=== PATIENT | male | born 1975 | race Caucasian/White ===

== ENCOUNTER 2017-08-26 06:56 | Emergency (ER) | payer MEDICAID, SELFPAY ==
[2017-08-26 07:11] VITALS: BP 130/90; PULSE 81; RESP 16; TEMP 37.1; O2SAT 98; BMI 25.1
--- NOTE | 2017-08-26 07:16 | XR_ITS ---
XR hand RT 2V HISTORY: ITS.REASON: pain with swelling ORDERING PHYSICIAN: Alf Greenberg MD PATIENT AGE: 42 years COMPARISON: None FINDINGS: No fracture or dislocation. No lytic or blastic change. There is normal mineralization.. The joint spaces are well-preserved. No significant degenerative/arthritic changes. No erosive changes evident.. 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
--- NOTE | 2017-08-26 07:23 | HMH.EDGENADL ---
ED Disposition Clinical Impression: Hand arthritis Disposition: Home, Self-Care Condition on Discharge: Good Instructions: DI for Arthralgia Additional Instructions: see pcp and take meds as directed Prescriptions: predniSONE [Prednisone 20mg Tab] 20 mg PO DAILY #10 tab - Critical Care Critical Care Time: No Attestation: On 08/26/17, the high probability of a clinically significant, sudden or life threatening deterioration of the following system(s) required my full and direct attention, intervention and personal management. The time I documented below is in addition to time spent performing reported procedures but includes the following listed in this critical care notation. Medical Decision Making - Medical Records Medical records reviewed: Yes: I reviewed the patient's medical records. Vital Signs: 08/26/17 07:11 Temperature 98.7 F Temperature Source Oral Pulse Rate [Left Brachial] 81 Respiratory Rate 16 Blood Pressure [Right Arm] 130/90 Blood Pressure Mean [Right Arm] 103 Blood Pressure Source [Right Arm] Automatic Cuff Blood Pressure Position [Right Arm] Sitting 02 Sat by Pulse Oximetry 98 Oxygen Delivery Method Room Air Orders (Tests/Meds): ORDERS Category Date Time Status Hand XR right 2 views [XR hand RT 2V] Stat Exams 08/26/17 07:16 Ordered - Radiology Data #1 Image(s): Hand Image Reviewed: Yes I reviewed the patient's radiology image Preliminary Findings: No Fracture Seen - Iván Inquiry Pt receiving controlled substance: No General Adult HPI - General Chief complaint: PAIN Stated complaint: Swollen Rt Hand Time Seen by Provider: 08/26/17 07:23 Mode of Arrival: Ambulatory Source of Information: Patient, Medical Record Limitations: No Limitations Description of Symptoms (Recalled from ER Triage Doc. by RN): pt c/o pain in the right hand with swelling - History of Present Illness HPI narrative: atraumatic rt hand swelling over the last 2 days - no hx of gout Onset (ago): day(s) Location: upper extremity Radiation: non-radiation Severity: moderate Relieving factors: none Exacerbating factors: none Associated symptoms: denies other symptoms - Related Data Previous Rx's Medication Instructions Recorded predniSONE [Prednisone 20mg 20 mg PO DAILY #10 tab 08/26/17 Tab] Allergies Allergy/AdvReac Type Severity Reaction Status Date / Time aspirin [ASPIRIN] Allergy Unknown Unverified 08/03/17 15:00 [facility] History I have reviewed the patient's past medical history: Yes Medical History: Denies:: Cancer, MRSA Amputation: No - *Social History Smoking Status: Current every day smoker Tobacco Type: cigarettes Alcohol Intake: never - Psychiatric History Expresses thoughts of harming self/others: None Suicide Plan Description: No Plan ROS Obtained: Yes All systems reviewed & no additional complaints - Constitutional Constitutional: Denies fever(s) - Eyes Eyes: Denies change in vision - ENT Ears, Nose, Mouth, and Throat: Denies sore throat - Cardiovascular Cardiovascular: Denies chest pain, Denies chest pain at rest - Respiratory Respiratory: No cough - Gastrointestinal Gastrointestingal: Denies: abdominal pain - Musculoskeletal Musculoskeletal: Reports joint pain, Reports joint swelling - Integumentary/Breasts Skin/Breast: Denies rash - Neurologic Neurologic: Denies dizziness Physical Exam - General General appearance: in no apparent distress - Head Head exam: normocephalic - Eye Eye exam: Present: PERRL, EOMI - ENT ENT exam: Present: normal oropharynx - Neck Neck exam: Present: trachea midline - Respiratory Respiratory exam: Absent: respiratory distress - Cardiovascular Cardiovascular exam: Present: regular rate - Extremities Exam Extremities exam: Present: tenderness, joint swelling - Neurological Exam Neurological exam: Present: oriented X3, CN II-XII intact - Psychiatri
--- NOTE | 2017-08-26 07:37 | ED_ITS ---
ED Disposition Clinical Impression: Hand arthritis Disposition: Home, Self-Care Condition on Discharge: Good Instructions: DI for Arthralgia Additional Instructions: see pcp and take meds as directed Prescriptions: predniSONE [Prednisone 20mg Tab] 20 mg PO DAILY #10 tab - Critical Care Critical Care Time: No Attestation: On 08/26/17, the high probability of a clinically significant, sudden or life threatening deterioration of the following system(s) required my full and direct attention, intervention and personal management. The time I documented below is in addition to time spent performing reported procedures but includes the following listed in this critical care notation. Medical Decision Making - Medical Records Medical records reviewed: Yes: I reviewed the patient's medical records. Vital Signs: 08/26/17 07:11 Temperature 98.7 F Temperature Source Oral Pulse Rate [Left Brachial] 81 Respiratory Rate 16 Blood Pressure [Right Arm] 130/90 Blood Pressure Mean [Right Arm] 103 Blood Pressure Source [Right Arm] Automatic Cuff Blood Pressure Position [Right Arm] Sitting 02 Sat by Pulse Oximetry 98 Oxygen Delivery Method Room Air Orders (Tests/Meds): ORDERS Category Date Time Status Hand XR right 2 views [XR hand RT 2V] Stat Exams 08/26/17 07:16 Ordered - Radiology Data #1 Image(s): Hand Image Reviewed: Yes I reviewed the patient's radiology image Preliminary Findings: No Fracture Seen - Iván Inquiry Pt receiving controlled substance: No General Adult HPI - General Chief complaint: PAIN Stated complaint: Swollen Rt Hand Time Seen by Provider: 08/26/17 07:23 Mode of Arrival: Ambulatory Source of Information: Patient, Medical Record Limitations: No Limitations Description of Symptoms (Recalled from ER Triage Doc. by RN): pt c/o pain in the right hand with swelling - History of Present Illness HPI narrative: atraumatic rt hand swelling over the last 2 days - no hx of gout Onset (ago): day(s) Location: upper extremity Radiation: non-radiation Severity: moderate Relieving factors: none Exacerbating factors: none Associated symptoms: denies other symptoms - Related Data Previous Rx's Medication Instructions Recorded predniSONE [Prednisone 20mg 20 mg PO DAILY #10 tab 08/26/17 Tab] Allergies Allergy/AdvReac Type Severity Reaction Status Date / Time aspirin [ASPIRIN] Allergy Unknown Unverified 08/03/17 15:00 [facility] History I have reviewed the patient's past medical history: Yes Medical History: Denies:: Cancer, MRSA Amputation: No - *Social History Smoking Status: Current every day smoker Tobacco Type: cigarettes Alcohol Intake: never - Psychiatric History Expresses thoughts of harming self/others: None Suicide Plan Description: No Plan ROS Obtained: Yes All systems reviewed & no additional complaints - Constitutional Constitutional: Denies fever(s) - Eyes Eyes: Denies change in vision - ENT Ears, Nose, Mouth, and Throat: Denies sore throat - Cardiovascular Cardiovascular: Denies chest pain, Denies chest pain at rest - Respiratory Respiratory: No cough - Gastrointestinal Gastrointestingal: Denies: abdominal pain -
== END 2017-08-26 07:45 | disposition home or self-care (01) ==
PROVIDERS: Emergency Provider Emergency Medicine
DX: M19.041 Primary osteoarthritis, right hand (principal); F17.210 Nicotine dependence, cigarettes, uncomplicated
CPT/HCPCS: 73120; 99283

== ENCOUNTER → 2017-10-01 10:56 | Outpatient (CLI) | payer MEDICAID, SELFPAY ==
--- NOTE | 2017-10-01 11:05 | XR_ITS ---
EXAM: XR cervical spine 5V HISTORY: ITS.REASON: neck pain ORDERING PHYSICIAN: Alf Greenberg MD PATIENT AGE: 42 years COMPARISON: None FINDINGS: There is normal alignment. There is degenerative disc disease at C5-C6 and C6-C7 as well as the atlantooccipital joint. No fracture or dislocation. No lytic or blastic change. Foraminal narrowing is present on the right at C3-C4 and C4-C5 and on the left at C6-C7 and C4-C5. No bony destructive process evident. No cervical ribs. IMPRESSION: Cervical spondylosis with degenerative disc disease and mild bilateral foraminal narrowing as described above
== END ==
PROVIDERS: PCP Emergency Medicine; Visit Provider Emergency Medicine
DX: M54.2 Cervicalgia (principal); M25.431 Effusion, right wrist; M25.432 Effusion, left wrist; R53.83 Other fatigue
CPT/HCPCS: 72050

== ENCOUNTER → 2017-10-01 11:00 | Outpatient (CLI) | payer MEDICAID, SELFPAY ==
[2017-10-01 18:23] LABS: Basophils # 0.1 K/mm3 (0-0.2); Basophils % 0.6 % (0.1-2.0); Eosinophils # 0.4 K/mm3 (0.0-0.4); Hematocrit 43.6 % (42.0-52.0); Hemoglobin 14.5 g/dL (14.1-18.0); Lymphocytes # 2.6 K/mm3 (0.7-4.5); Mean Corpuscular HGB Conc 33.3 g/dL (31.8-35.4); Mean Corpuscular Hemoglobin 30.1 pg (27.0-31.2); Mean Corpuscular Volume 90.4 fl (80-94); Monocytes # 0.8 K/mm3 (0.1-1.0); Monocytes % 6.5 % (1.7-9.3); Neutrophils % 67.9 % (37.0-80.0); Platelet Count 233 K/mm3 (142-424); Red Blood Count 4.82 M/mm3 (4.60-6.20); Red Cell Distribution Width 13.1 % (11.5-17.5); White Blood Count 11.8 K/mm3 (4.8-10.8)
[2017-10-01 18:44] LABS: Alanine Aminotransferase 40 U/L (12-78); Albumin Level 3.9 gm/dL (3.4-5.0); Albumin/Globulin Ratio 1.2 (1.1-1.8); Alkaline Phosphatase 76 U/L (46-116); Anion Gap 11.3 mEq/L (5-15); Aspartate Amino Transferase 21 U/L (15-37); Bilirubin,Total 0.7 mg/dL (0.2-1.0); Blood Urea Nitrogen 14 mg/dL (7-18); Calcium 8.3 mg/dL (8.5-10.1); Carbon Dioxide 28 mmol/L (21.0-32.0); Chloride 104 mmol/L (98-107); Chol/HDL Ratio 7.3 (1-3.5); Cholesterol 205 mg/dL (140-200); Creatinine,Serum 0.69 mg/dL (0.70-1.30); Estimated Glomerular Filt Rate 125 ml/min (>60); Free T4 (Free Thyroxine) 0.83 ng/dl (0.76-1.46); GFR (African American) 151 ML/MIN (>60); Globulin 3.3 gm/dl (1.3-3.2); Glucose 128 mg/dL (74-106); HDL Cholesterol 28 mg/dL (27-67); LDL Cholesterol 136 mg/dL (0-130); Potassium 4.3 mmoL/L (3.5-5.1); Sodium 139 mmol/L (136-145); Thyroid Stimulating Hormone 1.25 uIU/ml (0.358-3.740); Total Protein,Serum 7.2 gm/dL (6.4-8.2); Triglycerides 204 mg/dL (30-200); VLDL Cholesterol 41 mg/dL (0-40)
[2017-10-03 08:11] LABS: Hep A Ab, IgM Negative (Negative); Hepatitis B Core Antibody IgM Negative (Negative); Hepatitis B Surface Antigen Negative (Negative)
[2017-10-03 17:09] LABS: Hepatitis C Antibody 0.3 s/co ratio (0.0-0.9)
[2017-10-04 11:11] LABS: Anti-Jo-1 <0.2 AI (0.0-0.9); Anti-Smith Antibody <0.2 AI (0.0-0.9); Antichromatin Antibodies <0.2 AI (0.0-0.9); Antiscleroderma-70 Antibodies <0.2 AI (0.0-0.9); RNP Antibodies <0.2 AI (0.0-0.9); Sjogren's Anti-SS-A <0.2 AI (0.0-0.9); Sjogren's Anti-SS-B <0.2 AI (0.0-0.9)
[2017-10-06 06:34] LABS: Anti-Centromere B Antibodies <0.2 AI (0.0-0.9); Anti-DNA (DS) Ab Qn <1 IU/mL (0-9)
== END ==
PROVIDERS: Visit Provider Emergency Medicine
DX: R53.83 Other fatigue (principal); M54.2 Cervicalgia; M25.431 Effusion, right wrist; M25.432 Effusion, left wrist
CPT/HCPCS: 80053; 80061; 80074; 84439; 84443; 85025; 86038

== ENCOUNTER 2017-10-12 14:58 | Emergency (ER) | payer MEDICAID, SELFPAY ==
[2017-10-12 15:03] VITALS: BP 148/87; PULSE 75; RESP 20; TEMP 36.6; O2SAT 99; BMI 27.3
[2017-10-12 15:37] VITALS: BP 136/70; PULSE 89; RESP 20; TEMP 36.6; O2SAT 99
== END 2017-10-12 15:37 | disposition left against medical advice (07) ==
LOC: ER 15:07
PROVIDERS: Emergency Provider Emergency Medicine; PCP Emergency Medicine
DX: J18.9 Pneumonia, unspecified organism (principal); F17.210 Nicotine dependence, cigarettes, uncomplicated
CPT/HCPCS: 99281